=== PATIENT | male | born 2000 | race Caucasian/White ===

== ENCOUNTER 2020-09-09 22:04 | Emergency (ER) | payer BC ==
[~2020-09-09] VITALS: Ht 177.8 cm; Wt 68.0 kg
[2020-09-09 23:20] LABS: BILIRUBIN,URINE NEGATIVE (NEG); CLARITY,URINE CLEAR; COLOR,URINE YELLOW; NITRITE,URINE NEGATIVE (NEG); PH,URINE 5.5 (<5.0-8.0); PROTEIN,URINE 100 mg/dL (NEG-TRACE); UROBILINOGEN,URINE 0.2 mg/dL (0.2 mg/dL)
--- NOTE | 2020-09-09 23:20 | ED.ADGEN ---
Past Medical History Past Medical History: Other Additional Past Medical Histor: LEGGPERTHES. Past Surgical History: Appendectomy, Other Additional Past Surgical Histo: R HIP, LEFT KNEE, LEFT HAND Smoking Status: Never Smoker Alcohol Use: None General Adult EDM: Chief Complaint: MULTIPLE COMPLAINTS HPI: HPI: Patient is a 20-year-old male coming in for multiple complaints of a going on for about 2 months. Patient states he has been getting intermittently lightheaded and feels like he is going to faint but has not. States that the sensation is not dependent on position or standing up. The also is complaining of lower extremity edema that is intermittent and worse with standing or walking around but better with putting his feet up. He had some nausea but no vomiting. Patient states he is worsening left upper quadrant abdominal pain. Denies any change with urination. Denies any chest pain, shortness of breath or cough. States he is also noticed a sore inflamed lymph node on his right anterior neck. Denies any sore throat. States he does is complaining of fatigue. States he has been improving his diet. Does not currently have insurance or primary care because [place] had [place] and has not followed up. Denies any sick contacts. Patient has a history of baseline. Soft bowel movements that has not been changed. Was seen at [facility] 16 days ago and worked up for same complaints. Review of Systems: Review of Systems: Constitutional: Well developed, well nourished, no acute distress, non-toxic appearance. [] HENT: Normocephalic, atraumatic, bilateral external ears normal, nose normal. [] Eyes: PERRLA, conjunctiva normal, no discharge. [] Neck: No rigidity, supple, no stridor. [] Cardiovascular: Regular rate and rhythm, brisk cap refill [] Lungs & Thorax: Non labored symmetric respirations, no tachypnea or respiratory distress [] Abdomen: Soft, nondistended. Skin: Warm, dry, no erythema, no rash. [] Back: Unremarkable Extremities: No deformities, range of motion grossly intact, no lower extremity edema [] Neurologic: Alert and oriented X 3, no focal deficits noted. [] Psychologic: Affect normal, judgement normal, mood normal. [] Current Medications: Current Medications Medications (Trade) Dose Ordered Sig/Jadon Start Time Stop Time Status Last Admin Dose Admin Info (CONTRAST GIVEN -- Rx MONITORING) 1 each PRN DAILY PRN 09/10/20 00:15 2 00:14 Iohexol (Omnipaque 300 Mg/ml) 75 ml 1X ONCE 09/10/20 00:30 09/10/20 00:31 DC 09/10/20 00:39 75 ML Sodium Chloride 1,000 ml @ 1,000 mls/hr 1X ONCE 09/09/20 23:30 09/10/20 00:29 DC 09/09/20 23:40 1,000 MLS/HR Allergies: Allergies: Allergies Coded Allergies Type Severity Reaction Last Updated Verified acetaminophen Allergy Intermediate itchy rash 09/09/20 Yes oxycodone Allergy Intermediate itchy rash 09/09/20 Yes Physical Exam: PE: Constitutional: Well developed, well nourished, no acute distress, non-toxic appearance. [] HENT: Normocephalic, atraumatic, bilateral external ears normal, nose normal. [] Eyes: PERRLA, conjunctiva normal, no discharge. [] Neck: No rigidity, supple, no stridor. Right anterior cervical lymphadenopathy c onsisting of two 1 cm nodes, [] Cardiovascular: Regular rate and rhythm, brisk cap refill [] no thyromegaly or goiter Lungs & Thorax: Non labored symmetric respirations, no tachypnea or respiratory distress [] Abdomen: Soft, nondistended, LUQ TTP without rebound or guarding. Skin: Warm, dry, no erythema, no rash. [] Back: Unremarkable Extremities: No deformities, range of motion grossly intact, no lower extremity edema [] Neurologic: Alert and oriented X 3, no focal deficits noted. [] Psychologic: Affect normal, judgement normal, mood normal. [] Current Patient Data: Labs: Laboratory Tests Test 09/09/20 22:16 09/09/20 23:30 09/09/20 23:40 Urine Collection Type Unknown Urine Color Yellow Urine Clarity Clear Urine pH 5.5 (<5.0-8.0) Urine Specific [place] 1.020 (1.000-1.030) Urine Protein 100 mg/dL (NEG-TRACE) Urine Glucose (UA) Negative mg/dL (NEG) Urine Ketones (Stick) 40 mg/dL (NEG) Urine Blood Negative (NEG) Urine Nitrite Negative (NEG) Urine Bilirubin Negative (NEG) Urine Urobilinogen Dipstick 0.2 mg/dL (0.2 mg/dL) Urine Leukocyte Esterase Negative (NEG) Urine RBC 0 /HPF (0-2) Urine WBC 0 /HPF (0-4) Urine Squamous Epithelial Cells Occ /LPF Urine Amorphous Sediment Present /HPF Urine Bacteria 0 /HPF (0-FEW) Urine Hyaline Casts Few /HPF Urine Mucus Marked /LPF Thyroid Stimulating Hormone (TSH) 0.670 uIU/mL (0.358-3.74) White Blood Count 7.2 x10^3/uL (4.0-11.0) Red Blood Count 5.02 x10^6/uL (4.30-5.70) Hemoglobin 15.2 g/dL (13.0-17.5) Hematocrit 44.6 % (39.0-53.0) Mean Corpuscular Volume 89 fL (79-100) Mean Corpuscular Hemoglobin 30 pg (25-35) Mean Corpuscular Hemoglobin Concent 34 g/dL (31-37) Red Cell Distribution Width 12.4 % (11.5-14.5) Platelet Count 261 x10^3/uL (140-400) Neutrophils (%) (Auto) 64 % (31-73) Lymphocytes (%) (Auto) 27 % (24-48) Monocytes (%) (Auto) 9 % (0-9) Eosinophils (%) (Auto) 1 % (0-3) Basophils (%) (Auto) 1 % (0-3) Neutrophils # (Auto) 4.6 x10^3/uL (1.8-7.7) Lymphocytes # (Auto) 1.9 x10^3/uL (1.0-4.8) Monocytes # (Auto) 0.6 x10^3/uL (0.0-1.1) Eosinophils # (Auto) 0.0 x10^3/uL (0.0-0.7) Basophils # (Auto) 0.0 x10^3/uL (0.0-0.2) Sodium Level 140 mmol/L (136-145) Potassium Level 3.7 mmol/L (3.5-5.1) Chloride Level 100 mmol/L (98-107) Carbon Dioxide Level 27 mmol/L (21-32) Anion Gap 13 (6-14) Blood Urea Nitrogen 14 mg/dL (8-26) Creatinine 0.9 mg/dL (0.7-1.3) Estimated GFR (Cockcroft-Gault) 105.5 BUN/Creatinine Ratio 16 (6-20) Glucose Level 92 mg/dL (70-99) Lactic Acid Level 0.8 mmol/L (0.4-2.0) Calcium Level 9.6 mg/dL (8.5-10.1) Phosphorus Level 3.7 mg/dL (2.6-4.7) Total Bilirubin 0.5 mg/dL (0.2-1.0) Aspartate Amino Transferase (AST) 12 U/L (15-37) L Alanine Aminotransferase (ALT) 26 U/L (16-63) Alkaline Phosphatase 85 U/L (46-116) Troponin I Quantitative < 0.017 ng/mL (0.000-0.055) C-Reactive Protein, Quantitative < 0.5 mg/L (0-3.3) PM-Gqy-Y-Type Natriuretic Peptide 5 pg/mL (0-124) Total Protein 7.6 g/dL (6.4-8.2) Albumin 4.8 g/dL (3.4-5.0) Albumin/Globulin Ratio 1.7 (1.0-1.7) Lipase 93 U/L (73-393) Heterophil Agglutinins Negative (NEGATIVE) HIV (1&2) Antibody Screen Nonreactive (Nonreactive) Laboratory Tests 09/09/20 23:40 Laboratory Tests 09/09/20 23:40 Vital Signs: Vital Signs Date Time Temp Pulse Resp B/P (MAP) Pulse Ox O2 Delivery O2 Flow Rate FiO2 09/09/20 23:30 91 152/99 (116) 98 Room Air 09/09/20 22:26 99.0 16 99.0 EKG: EKG: [] Heart Score: Risk Factors: Risk Factors: DM, Current or recent (<one month) smoker, HTN, HLP, family history of CAD, obesity. Risk Scores: Score 0 - 3: 2.5% MACE over next 6 weeks - Discharge Home Score 4 - 6: 20.3% MACE over next 6 weeks - Admit for Clinical Observation Score 7 - 10: 72.7% MACE over next 6 weeks - Early Invasive Strategies Radiology/Procedures: Radiology/Procedures: CT ABDOMEN+PELVIS W Clinical Indication: Reason: LUQ pain, n/v/d, history leg calf Perthes disease Comparison: None. Technique: Helical CT imaging of the abdomen and pelvis is performed after 75 cc of Omnipaque 300 IV contrast. Oral contrast not administered. Findings: The lung bases are clear. Cardiac size normal. The liver, gallbladder, spleen, pancreas, adrenal glands, abdominal aorta, and kidneys are normal. Punctate nonobstructing calculus upper pole right kidney. No obvious abnormality of the stomach. There is no dilated small bowel. Appendectomy. There is sigmoid colon diverticulosis. There is no colon wall thickening. No abdominal adenopathy or free fluid. Urinary bladder is normal. The prostate and seminal vesicles are normal. There is no pelvic free fluid. There is chronic deformity of the right hip. There is flattening of the femoral head and acetabulum. There are surgical screws in the proximal right femur. IMPRESSION: 1. No acute abdominal or pelvic abnormality. 2. Sigmoid colon diverticulosis. 3. Punctate nonobstructing right renal calculus. [] Course & Med Decision Making: Course & Med Decision Making Pertinent Labs and Imaging studies reviewed. (See chart for details) Chart reviewed from [facility] was unremarkable. Had CT head and chest x-ray. Again no emergent pathology was identified. Labs and CT imaging were normal. Since patient had recently moved from [facility] offer admission for further in fectious disease work-up, patient and significant other declined. [] Dragon Disclaimer: Dragon Disclaimer: This electronic medical record was generated, in whole or in part, using a voice recognition dictation system. Departure Departure Impression: Primary Impression: Fatigue Additional Impression: LUQ abdominal pain Disposition: 01 DC HOME SELF CARE/HOMELESS Condition: STABLE Patient Instructions: Fatigue Additional Instructions: [facility] [address] [place] [address] [facility] [address] [place] [address] [facility] [address] [place] [address] [facility] [address] [place] [address] [facility] [address] [place] [address] [facility] [address] [place] [address] [address] [address] [place] [address] [facility] [address] [place] [address] [facility] [address] [place] [address] [facility] [address] [place] [address] Problem Qualifiers KEEGAN BEST MD Sep 09, 2020 23:20
[2020-09-09 23:29] LABS: AMORPHOUS SEDIMENT,UR PRESENT /HPF; BACTERIA,URINE 0 /HPF (0-FEW); HYALINE CASTS, URINE FEW /HPF; RBC,URINE 0 /HPF (0-2); WBC,URINE 0 /HPF (0-4)
[2020-09-09] MEDS ORDERED: IV NORMAL SALINE 1000ML BAG 1,000 ML IV ONE (23:30)
[2020-09-09 23:54] LABS: BASO % 1 % (0-3); EOS % 1 % (0-3); HEMATOCRIT 44.6 % (39.0-53.0); HEMOGLOBIN 15.2 g/dL (13.0-17.5); LYMPH # 1.9 x10^3/uL (1.0-4.8); LYMPH % 27 % (24-48); MEAN CORPUSCULAR HEMOGLOBIN 30 pg (25-35); MEAN CORPUSCULAR HGB CONC 34 g/dL (31-37); MEAN CORPUSCULAR VOLUME 89 fL (79-100); MONO # 0.6 x10^3/uL (0.0-1.1); MONO % 9 % (0-9); NEUT # 4.6 x10^3/uL (1.8-7.7); NEUT % 64 % (31-73); PLATELET COUNT 261 x10^3/uL (140-400); RED BLOOD COUNT 5.02 x10^6/uL (4.30-5.70); RED CELL DISTRIBUTION WIDTH 12.4 % (11.5-14.5); WHITE BLOOD COUNT 7.2 x10^3/uL (4.0-11.0)
[2020-09-10 00:01] LABS: MONONUCLEOSIS PATIENT NEGATIVE (NEGATIVE)
[2020-09-10 00:04] LABS: ANION GAP 13 (6-14); BLOOD UREA NITROGEN 14 mg/dL (8-26); BUN/CREATININE RATIO 16 (6-20); CALCIUM 9.6 mg/dL (8.5-10.1); CARBON DIOXIDE 27 mmol/L (21-32); CHLORIDE 100 mmol/L (98-107); CREATININE 0.9 mg/dL (0.7-1.3); GFR 105.5; GLUCOSE 92 mg/dL (70-99); POTASSIUM 3.7 mmol/L (3.5-5.1); SODIUM 140 mmol/L (136-145)
[2020-09-10 00:09] LABS: ALBUMIN 4.8 g/dL (3.4-5.0); ALBUMIN/GLOBULIN RATIO 1.7 (1.0-1.7); ALK PHOS 85 U/L (46-116); ALT (SGPT) 26 U/L (16-63); AST (SGOT) 12 U/L (15-37); LIPASE 93 U/L (73-393); PHOSPHORUS 3.7 mg/dL (2.6-4.7); TOTAL BILIRUBIN 0.5 mg/dL (0.2-1.0); TOTAL PROTEIN 7.6 g/dL (6.4-8.2)
[2020-09-10] MEDS ORDERED: CONTRAST GIVEN. MC PRN (00:15)
[2020-09-10 00:24] LABS: C-REACTIVE PROTEIN < 0.5 mg/L (0-3.3)
[2020-09-10] MEDS ORDERED: IOHEXOL 300 MG/ML 100ML VIAL. IV ONE (00:30)
--- NOTE | 2020-09-10 01:26 | RAD ---
PQRS Compliance Statement: One or more of the following individualized dose reduction techniques were utilized for this examinat ion: 1. Automated exposure control 2. Adjustment of the mA and/or kV according to patient size 3. Use of iterative reconstruction technique CT ABDOMEN+PELVIS W Clinical Indication: Reason: LUQ pain, n/v/d, history leg calf Perthes disease Comparison: None. Technique: Helical CT imaging of the abdomen and pelvis is performed after 75 cc of Omnipaque 300 IV contrast. Oral contrast not administered. Findings: The lung bases are clear. Cardiac size normal. The liver, gallbladder, spleen, pancreas, adrenal glands, abdominal aorta, and kidneys are normal. Pu nctate nonobstructing calculus upper pole right kidney. No obvious abnormality of the stomach. There is no dilated small bowel. Appendectomy. There is sigmoi d colon diverticulosis. There is no colon wall thickening. No abdominal adenopathy or free fluid. Urinary bladder is normal. The prostate and seminal vesicles are normal. There is no pelvic free flui d. There is chronic deformity of the right hip. There is flattening of the femoral head and acetabulum. There are surgical screws in the proximal right femur. IMPRESSION: 1. No acute abdominal or pelvic abnormality. 2. Sigmoid colon diverticulosis. 3. Punctate nonobstructing right renal calculus. Electronically signed by: Brody Mendes MD (09/10/2020 1:24 AM) [facility]
[2020-09-10 02:30] VITALS: BP 129/78
== END 2020-09-10 02:56 | disposition home or self-care (01) ==
LOC: ER 22:04
DX: R10.12 Left upper quadrant pain (principal); R53.83 Other fatigue; R20.2 Paresthesia of skin; R60.0 Localized edema; Z90.89 Acquired absence of other organs; Z98.890 Other specified postprocedural states; Z88.5 Allergy status to narcotic agent; Z88.8 Allergy status to other drugs, medicaments and biological substances
CPT/HCPCS: 36415; 74177; 80053; 81001; 83605; 83690; 83880; 84100; 84443; 84484; 85025; 86140; 86308; 86703; 96360; 99285; J7030; Q9967

== ENCOUNTER 2022-01-03 13:01 | Emergency (ER) | payer BC, OTHER ==
[~2022-01-03] VITALS: Ht 177.8 cm; Wt 90.9 kg
[2022-01-03 13:07] VITALS: BP 149/85
--- NOTE | 2022-01-03 13:26 | PHYS DOC ---
Past Medical History Past Medical History: Other Additional Past Medical Histor: LEGGPERTHES, VERTIGO (KOFITomekaALISSON Cox TANNERY GUMMER) Past Surgical History: Appendectomy, Other Additional Past Surgical Histo: R HIP, LEFT KNEE, LEFT HAND (KOFIALISSON Eckert TANNERY GUMMER) Smoking Status: Never Smoker Alcohol Use: None (TIARRAALISSON SHEA TANNERY GUMMER) General Adult EDM: Chief Complaint: DIZZY/LIGHT HEADED HPI: HPI: Patient is a 21 year old male with history of dizziness, vertigo, presenting to the ED today complaining of dizziness and vertigo, symptoms for 3 days. Patient states he follows up with Dr. Dejesus, he states he is supposed to have an MRI of his brain done but it was canceled because of insurance issues. He presents through the ED asking for MRI only. He states he does not want any further work-up to keep his cost low (ALISSON MEJIAS TANNERY GUMMER) Review of Systems: Review of Systems: Constitutional: Denies fever or chills. [] Eyes: Denies change in visual acuity. [] HENT: Denies nasal congestion or sore throat. [] Respiratory: Denies cough or shortness of breath. [] Cardiovascular: Denies chest pain or edema. [] GI: Denies abdominal pain, nausea, vomiting, bloody stools or diarrhea. [] : Denies dysuria. [] Musculoskeletal: Denies back pain or joint pain. [] Integument: Denies rash. [] Neurologic: Reports dizziness, vertigo. Denies headache, focal weakness or sensory changes. [] [] Psychiatric: Denies depression or anxiety. [] (ALISSON MEJIAS TANNERY GUMMER) Heart Score: C/O Chest Pain: N/A Risk Factors: Risk Factors: DM, Current or recent (<one month) smoker, HTN, HLP, family history of CAD, obesity. Risk Scores: Score 0 - 3: 2.5% MACE over next 6 weeks - Discharge Home Score 4 - 6: 20.3% MACE over next 6 weeks - Admit for Clinical Observation Score 7 - 10: 72.7% MACE over next 6 weeks - Early Invasive Strategies (ALISSON MEJIAS TANNERY GUMMER) Allergies: Allergies: Allergies Coded Allergies Type Severity Reaction Last Updated Verified acetaminophen Allergy Intermediate itchy rash 09/09/20 Yes oxycodone Allergy Intermediate itchy rash 09/09/20 Yes (ALISSON MEJIAS TANNERY GUMMER) Physical Exam: PE: Constitutional: Well developed, well nourished, no acute distress, non-toxic appearance. [] HENT: Normocephalic, atraumatic, bilateral external ears normal, oropharynx moist, no oral exudates, nose normal. [] Eyes: PERRLA, EOMI, conjunctiva normal, no discharge. [] Neck: Normal range of motion, no tenderness, supple, no stridor. [] Cardiovascular:Heart rate regular rhythm, no murmur [] Lungs & Thorax: Bilateral breath sounds clear to auscultation [] Abdomen: Bowel sounds normal, soft, no tenderness, no masses, no pulsatile masses. [] Skin: Warm, dry, no erythema, no rash. [] Back: No tenderness, no CVA tenderness. [] Extremities: No tenderness, no cyanosis, no clubbing, ROM intact, no edema. [] Neurologic: Alert and oriented X 3, normal motor function, normal sensory function, no focal deficits noted. [] Psychologic: Affect normal, judgement normal, mood normal. [] (ALISSON MEJIAS APRN) Current Patient Data: Vital Signs: Vital Signs Date Time Temp Pulse Resp B/P (MAP) Pulse Ox O2 Delivery O2 Flow Rate FiO2 01/03/22 13:07 98.1 104 18 149/85 (106) 98 Room Air 98.1 (ALISSON MEJIAS APRN) EKG: EKG: [] (ALISSON MEJIAS APRN) Radiology/Procedures: Radiology/Procedures: [] (ALISSON MEJIAS APRN) Course & Med Decision Making: Course & Med Decision Making Pertinent Labs and Imaging studies reviewed. (See chart for details) This a 21-year-old male patient presenting to the ED today with complaints of dizziness, vertigo, symptoms are chronic. He was scheduled to have an MRI that was canceled because of insurance issues. Presents to the ED today requesting the MRI of his brain to be done through the emergency room. Informed patient we do not do nonemergent MRI through the emergency room. Requested he follows up with his own PCP and neurologist and have them reordered the test. (ALISSON MEJIAS APRN) Dragon Disclaimer: Dragon Disclaimer: This electronic medical record was generated, in whole or in part, using a voice recognition dictation system. (ALISSON MEJIAS APRN) Departure Departure Impression: Primary Impression: Dizziness Disposition: HOME / SELF CARE / HOMELESS Condition: STABLE Referrals: NO PCP (PCP) KAMINI SIBLEY MD Call him and set up a follow-up appointment as soon as possible Patient Instructions: Dizziness, [id number] Additional Instructions: You were evaluated in the emergency room for dizziness. We highly recommend you contact your neurologist and primary care doctor and set up a follow-up appoint ment. Attending Signature I have participated in the care of this patient and I have reviewed and agree with all pertinent clinical information above including history, exam, and recommendations. (SINA YOUNG DO) ALISSON MEJIAS APRN January 03, 2022 13:26 SINA YOUNG DO January 03, 2022 13:57
== END 2022-01-03 13:31 | disposition home or self-care (01) ==
LOC: ER 13:01
DX: R42 Dizziness and giddiness (principal); Z88.5 Allergy status to narcotic agent; Z88.6 Allergy status to analgesic agent
CPT/HCPCS: 99281